=== PATIENT | male | born 1970 | race Caucasian/White ===

== ENCOUNTER 2017-06-17 18:26 | Emergency (ER) | payer OTHER ==
[~2017-06-17] VITALS: Ht 175.3 cm; Wt 80.0 kg
[2017-06-17] MEDS ORDERED: CEFTRIAXONE SODIUM 1 G/VIAL IM ONE (22:30)
[2017-06-17] MEDS ORDERED: LIDOCAINE HCL 1% 20ML VIAL (Pyxis) INJ INFIL ONE (22:30)
[2017-06-17 23:12] VITALS: BP 126/78
[2017-06-17] MEDS ORDERED: CEPHALEXIN 500MG CAPSULE PO ONE (23:30)
[2017-06-17] MEDS ORDERED: SULFAMETHOXAZOLE/TRIMETHOPRIM 800/160MG TABLET PO ONE (23:30)
== END 2017-06-18 00:05 | disposition home or self-care (01) ==
LOC: EDBD 18:26 → ER 23:46
DX: L03.115 Cellulitis of right lower limb (principal); I10 Essential (primary) hypertension; E03.9 Hypothyroidism, unspecified; Z98.890 Other specified postprocedural states
CPT/HCPCS: 96372; 99283; J0696; J3490